=== PATIENT | female | born 1935 | race African-American/Black ===

== ENCOUNTER 2019-04-25 15:43 | Inpatient (IN) | payer MEDICARE, OTHER ==
[2019-04-25 16:18] LABS: #Basophils 0.1 thou/uL (0.0-0.2); #Eosinphils 0.1 thou/uL (0.0-0.7); #Lymphocytes 2.3 thou/uL (1.20-3.40); #Monocytes 0.5 thou/uL (0.11-0.59); #Neutrophils 3.8 thou/uL (1.40-6.50); %Basophils 1.2 % (0.0-1.0); %Eosinophils 1.9 % (0.0-10.0); %Lymphocytes 33.6 % (21.0-51.0); %Monocytes 7.7 % (0.0-10.0); %Neutrophils 55.6 % (42.0-75.0); Hemoglobin 12.2 g/dL (12.0-16.0); Mean Corpuscular HGB CONC 32.6 g/dL (32.0-36.0); Mean Corpuscular Volume 92.1 fL (78.0-98.0); Mean Platelet Volume 10.3 fL (7.4-10.4); Platelet Count 153 thou/uL (130-400); RBC Distribution Width 12.2 % (11.5-14.5); Red Blood Cell (RBC) Count 4.05 mill/uL (4.20-5.40); White Blood Cell (WBC) Count 6.8 thou/uL (4.8-10.8)
--- NOTE | 2019-04-25 16:25 | RAD ---
EXAM: Single view of the chest HISTORY: Syncope COMPARISON: None FINDINGS: Single view of the chest shows a normal sized cardiomediastinal silhouette. There is no feliberto dence of consolidation, mass, or pleural effusion. Degenerative changes are seen in the spine. IMPRESSION: No evidence of acute cardiopulmonary disease
[2019-04-25] MEDS ORDERED: Ondansetron PF 4 MG/2 ML Vial ONE (16:33)
[2019-04-25 16:37] LABS: ALT (SGPT) 13 U/L (8-55); AST (SGOT) 16 U/L (5-34); Albumin 4.2 g/dL (3.4-4.8); Alkaline Phosphatase 73 U/L (40-150); Anion Gap 12 mmol/L (10-20); BUN (Urea Nitrogen) 29 mg/dL (9.8-20.1); Bilirubin, Total 0.4 mg/dL (0.2-1.2); CK (CPK) 41 U/L (29-168); Calc. Creatinine Clearance 0 mL/min (70-130); Calcium 10.2 mg/dL (7.8-10.44); Carbon Dioxide 23 mmol/L (23-31); Chloride 108 mmol/L (98-107); Estimated GFR-MDRD 49; Globulin 2.9 g/dL (2.4-3.5); Glucose 138 mg/dL (83-110); Potassium 3.6 mmol/L (3.5-5.1); Protein, Total 7.1 g/dL (6.0-8.3); Sodium 139 mmol/L (136-145)
[2019-04-25] MEDS ORDERED: Aspirin Chewable 81 MG TAB ONE (17:20)
[2019-04-25 18:54] LABS: Bilirubin Negative (Negative); Blood, Urine Negative (Negative); Clarity Clear (Clear); Glucose, Urine (Dipstick) Negative (Negative); Leukocyte Moderate (Negative); Nitrite Negative (Negative); Protein, Urine (Dipstick) Negative (Neg-Trace); Urobilinogen 0.2 mg/dL (0.2-1.0)
[2019-04-25 19:03] LABS: Bacteria/HPF None Seen HPF (None Seen); Hyaline Casts/LPF NONE SEEN LPF (0-3 Hyaline); RBC/HPF None Seen HPF (0-3); Squamous Epithelial 0-3 HPF (0-3)
[2019-04-25] MEDS ORDERED: Ondansetron PF 4 MG/2 ML Vial IVP PRN (20:11)
[2019-04-25] MEDS ORDERED: Senokot S 8.6-50 MG TAB PO PRN (20:11)
[2019-04-25 20:22] LABS: Troponin I 0.025 ng/mL (< 0.028)
--- NOTE | 2019-04-25 20:55 | CT ---
CT head noncontrast HISTORY: Syncope. FINDINGS: There is no evidence of acute intracranial hemorrhage or infarct. Mild diffuse cortical atr ophy is apparent. There is no mass effect or shift of midline structures. Visualized paranasal sinuses remain well aerated. IMPRESSION: No acute intracranial abnormalities are demonstrated
[2019-04-25] MEDS: Sodium Chloride 0.9% 1,000 ML IV SCH (21:29)
[2019-04-25] MEDS ORDERED: Pilocarpine 1% Ophth Drops 15 ML BOT EA EYE PRN (21:52)
--- NOTE | 2019-04-25 22:58 | HP ---
This is ARIES Guajardo dictating a report for Lyssa Rose MD. CHIEF COMPLAINT: Syncope. HISTORY OF PRESENT ILLNESS: Ms. Honeycutt is a pleasant 84-year-old woman, who was witnessed to have a syncopal episode by her . He states he was sitting near her in the garage when he noted she slumped into the chair and her head fell backward. He initially assumed she had fallen asleep, however, he had significant difficulty waking her. Eventually, she began to attempt to speak and sounded groggy with difficulty opening her eyes. He states this lasted anywhere between 5 and 10 minutes before she was fully alert. The patient complained of pain across her upper back from the left to right shoulder. It is unclear how long this pain lasted and she describes it aching pain which was 8/10 in severity. By the time the EMS came, she was no longer experiencing pain in her back, but had pain in her fingers on both hands. She denies any weakness or numbness in any extremity. She did not experience any associated slurred speech, vision changes, facial weakness or drooping nor any other sensory changes. The patient states she has been in her usual state of health in recent days and has not had any complaints. She denies experiencing any chest pain or abdominal pain. No nausea or vomiting. No headaches or dizziness. Has not had any recent fevers, chills, or sweats. No changes with her bowels and denies any urinary symptoms. Did not experience any weakness, numbness, or pain in her legs. Denies any recent trauma. No discomfort in her neck or back. All other review of systems negative. PAST MEDICAL HISTORY: 1. Type 2 diabetes mellitus. 2. Hyperlipidemia. 3. Hypertension. 4. Glaucoma. PAST SURGICAL HISTORY: Reports having eye surgery. SOCIAL HISTORY: Denies any history of alcohol use, drug use, or tobacco use. ALLERGIES: NO KNOWN DRUG ALLERGIES. CURRENT MEDICATIONS: 1. Alphagan. 2. Latanoprost. 3. Pilocarpine. 4. Metformin. 5. Simvastatin. 6. Aspirin. 7. Losartan/hydrochlorothiazide. PHYSICAL EXAMINATION: GENERAL: The patient appears thin, well developed, and in no acute distress. VITAL SIGNS: Temperature 97.5, pulse 60, respirations 18, blood pressure 174/77, and O2 saturation 100% on room air. HEENT: Normocephalic and atraumatic. Pupils are equal, round, and reactive to light. Extraocular movements intact. No nystagmus noted. Oropharynx is clear. NECK: Supple without lymphadenopathy. LUNGS: Clear to auscultation bilaterally without any wheezes, rales, or rhonchi. CARDIAC: Regular rate and rhythm. ABDOMEN: Soft, nontender, and nondistended. Normoactive bowel sounds present. No guarding or rigidity. No renal angle tenderness. EXTREMITIES: Without lower leg swelling or edema. NEUROLOGIC: Alert and oriented x3. Facial movements, normal. Speech, also normal. Facial sensation intact. No tongue deviation. Power 5/5 in all extremities with no altered sensation. Reflexes intact. Gait normal. SKIN: Without rash or jaundice. LABORATORY DATA: White blood count , hemoglobin 12.2, hematocrit 37.3, and platelets 153. Sodium 139, potassium 3.6, anion gap 12, BUN 29, creatinine 1.06, GFR 49, glucose 138, calcium 10.2, total bilirubin 0.4, AST 16, ALT 13, and alkaline phosphatase 73. CK 41; troponin I 0.025, less than 0.010; and BNP 51.8. Albumin 4.2. Urinalysis notable for leukocyte esterase, and 4 to 6 white blood cells. No bacteria or nitrites seen. IMAGING DATA: Chest x-ray, April 25, 2019. No evidence of acute cardiopulmonary process. Normal size cardiomediastinal silhouette. IMPRESSION AND PLAN: Ms. Honeycutt is an 84-year-old woman, who is being admitted for management of the following. 1. Syncope. Per her , she suddenly slumped in the chair and lost consciousness lasting 5 to 10 minutes before she was back to her baseline and alert/oriented. CT of the brain has been requested. Patient without any new neuro deficits at present and back to her baseline, except for pain in the bilateral hands. Day Team to decide further investigations such as carotid ultrasound if indicated. I have requested an echocardiogram. 2. Acute coronary syndrome rule out. Patient with pain across her upper back from left shoulder to right shoulder. LFTs unremarkable. I have added on lipase. Patient without any abdominal pain or other associated symptoms. Currently experiencing pain in the fingers of both hands, which is new. Currently trending troponins. Awaiting third troponin. We will continue to monitor and we will give acetaminophen for pain for now. 3. Hypertension. We will resume home medications once verified. Monitor her blood pressure. 4. Hyperlipidemia. We will resume home medications once verified. 5. Gastrointestinal prophylaxis. 6. Deep venous thrombosis prophylaxis with mechanical SCDs. 7. Full code status. Her surrogate decision maker is her , Mr. Oc Honeycutt. Patient's case to be discussed with Dr. Rose for further recommendations. Job ID: [id number]
[2019-04-25 23:38] LABS: Troponin I Less than 0.010 ng/mL (< 0.028)
[2019-04-26 05:33] LABS: #Basophils 0.1 thou/uL (0.0-0.2); #Eosinphils 0.1 thou/uL (0.0-0.7); #Lymphocytes 2.4 thou/uL (1.20-3.40); #Monocytes 0.5 thou/uL (0.11-0.59); #Neutrophils 3.5 thou/uL (1.40-6.50); %Basophils 0.8 % (0.0-1.0); %Eosinophils 1.6 % (0.0-10.0); %Neutrophils 53.7 % (42.0-75.0); Hemoglobin 11.3 g/dL (12.0-16.0); Mean Corpuscular HGB CONC 32.5 g/dL (32.0-36.0); Mean Corpuscular Hemoglobin 30.1 pg (27.0-31.0); Mean Corpuscular Volume 92.7 fL (78.0-98.0); Mean Platelet Volume 10.8 fL (7.4-10.4); Platelet Count 130 thou/uL (130-400); RBC Distribution Width 12.2 % (11.5-14.5); Red Blood Cell (RBC) Count 3.74 mill/uL (4.20-5.40); White Blood Cell (WBC) Count 6.6 thou/uL (4.8-10.8)
[2019-04-26 05:51] LABS: Anion Gap 10 mmol/L (10-20); BUN (Urea Nitrogen) 24 mg/dL (9.8-20.1); Calc. Creatinine Clearance 37 mL/min (70-130); Calcium 9.2 mg/dL (7.8-10.44); Carbon Dioxide 22 mmol/L (23-31); Chloride 111 mmol/L (98-107); Estimated GFR-MDRD 66; Glucose 77 mg/dL (83-110); Potassium 3.4 mmol/L (3.5-5.1); Sodium 140 mmol/L (136-145)
[2019-04-26] MEDS: Famotidine/PF 20 mg/2ml Vial SLOW IVP SCH (09:16)
[2019-04-26] MEDS: Aspirin 81 mg Enteric Coated Tablet PO SCH (10:10)
[2019-04-26] MEDS: Losartan/Hydrochlorothiazide 100 mg/25 mg Tablet PO SCH (10:10)
[2019-04-26] MEDS: DorzolamidE/Timolol 2%/0.5% Ophth Soln 10 ml Bottle EA EYE SCH ×2 (10:15→22:31)
[2019-04-26] MEDS: Brimonidine Tartrate 0.2% Ophth Soln 5 ml Bottle EA EYE SCH ×3 (10:15→22:31)
[2019-04-26] MEDS: prednisoLONE 1% Ophth Susp 5 ml Bottle EA EYE SCH ×3 (10:15→22:31)
[2019-04-26] MEDS ORDERED: Communication Order-Pharmacy FS SCH (11:00)
--- NOTE | 2019-04-26 12:00 | CON ---
DATE OF CONSULTATION: 04/26/2019 REASON FOR CONSULTATION: Syncope with left bundle-branch block. HISTORY OF PRESENT ILLNESS: Ms. Sherry Honeycutt is a delightful 84-year-old patient. The patient was in her usual state of relatively good health yesterday when she had a loss of consciousness episode. The patient had been inside of her house. Her had been outside working in the yard. Her came in to the garage and he said it was nice breeze and it was relatively cool. She came out and sat in the chair. They had been sitting in the chair for some time and she suddenly became unresponsive. The patient's said she was kind of was nodding forward, but he cannot revive her. This lasted for several minutes. Ultimately, she regained consciousness. The patient did have some pain in the upper back and left arm and the right arm and posterior portions of her arms with this episode. She has never had an episode like that before. The patient was found to have a left bundle-branch block here. MEDICATIONS: At home include; 1. Aspirin. 2. Simvastatin. 3. Losartan/hydrochlorothiazide. 4. Metformin. 5. Timolol eye drops. 6. Prednisolone eye drop. 7. Brimonidine eye drop. ALLERGIES: NONE KNOWN. SOCIAL HISTORY: No alcohol or tobacco. She has a very supportive family. REVIEW OF SYSTEMS: CONSTITUTIONAL: No significant weight gain or loss. VISION: No changes. HEARING: No changes. PULMONARY: No cough or wheezing. GASTROINTESTINAL: No nausea, vomiting, or diarrhea. SKIN: No rashes. NEUROLOGIC: No unilateral weakness or numbness. PSYCHIATRIC: No unusual depression or anxiety. PAST HISTORY: 1. History of hypertension. 2. Diabetes. 3. Hypercholesterolemia. PRIMARY CARE DOCTOR: Dr. Dexter. PHYSICAL EXAMINATION: GENERAL: On examination, this is a delightful 84-year-old female. VITAL SIGNS: Blood pressure 170/70, pulse 66 and regular. HEENT: Eyes; sclerae are nonicteric. Mouth; mucous membranes are moist. NECK: Supple. No lymphadenopathy. LUNGS: Clear. No wheezing, rales, or rhonchi. CARDIAC: Normal S1. Normal S2. There is no murmur, rub, or gallop. ABDOMEN: Soft and nontender. No hepatosplenomegaly. EXTREMITIES: Warm and dry. No clubbing or cyanosis. There is no edema. PSYCHIATRIC: Mood and affect normal. NEUROLOGIC: Grossly normal. Normal femoral pulses. Normal popliteal pulses. Normal dorsalis pedis pulses. PERTINENT LABORATORY DATA: Hemoglobin is 11.3. Potassium is 3.4, glucose 77. Troponin levels were negative, the peak being 0.025. EKG shows left bundle-branch block. QRS duration 0.15 with a first-degree AV block. Echocardiogram shows ejection fraction to be 35% to 40% with paradoxical septal motion. No significant valvular heart disease. ASSESSMENT: 1. Syncopal episode, it sounds very suspicious for a bradyarrhythmia. 2. Left bundle-branch block with first-degree atrioventricular block. 3. Chest pain associated with this episode. 4. Diabetes. 5. Hypertension. 6. History of hypercholesterolemia. PLAN: 1. Recommend proceeding to cardiac catheterization to define the coronary anatomy. Discussed risk of stroke, heart attack, iodine allergy, interference of blood supply to leg or kidney. Discussed that if there is a critical lesion in a vessel, a stent would be appropriate. The risk of stenting including myocardial infarction, stent thrombosis, and stent restenosis were all discussed. 2. Will likely need electrophysiologic evaluation. If she does not have critical lesions in the coronary arteries, may need biventricular pacing. The first step today will be the heart catheterization. Job ID: [id number]
[2019-04-26] MEDS ORDERED: Lidocaine 1% (PF) 30 ML VIAL ONE (12:33)
--- NOTE | 2019-04-26 12:51 | ULT ---
BILATERAL CAROTID DUPLEX ULTRASOUND: HISTORY: Syncope TECHNIQUE: Grayscale, color-flow and spectral Doppler ultrasound imaging of the extracranial carotid artery syst ems and vertebral arteries was performed bilaterally. FINDINGS: No large amount of echogenic plaque is seen involving the common carotid or internal carotid arteries . The peak systolic velocity in the right ICA measures 74 cm/s. The peak systolic velocity in the righ t CCA measures 73 cm/s. The peak systolic velocity in the left ICA measures 79 cm/s. The peak systolic velocity in the lef t CCA measures 93 cm/s. Vertebral flow: Antegrade bilaterally . IMPRESSION: No hemodynamically significant stenosis of either internal carotid artery.
[2019-04-26] MEDS ORDERED: Iopamidol 370 76% 100 ML VIAL ONE (12:56)
[2019-04-26] MEDS ORDERED: Midazolam HCl 2 mg/2 ml Vial ONE (13:08)
--- NOTE | 2019-04-26 13:39 | PDOC.PN ---
- Subjective Encounter Start Date: 04/26/19 Encounter Start Time: 13:38 Patient seen and examined with granddaughter at bedside. She reports feeling better and denies any more syncopal like episodes. Echo shows EF 35-40% with signs of LBBB, Cardiology recommending heart cath. - Objective Resuscitation Status - Order Detail: 04/25/19 20:11 Resuscitation Status Routine Co-Sign Provider: Resuscitation Status: FULL: Full Resuscitation MAR Reviewed: Yes Vital Signs & Weight: Vital Signs (12 hours) Temp Pulse Resp BP BP BP BP 04/26/19 11:58 98.3 F 63 16 150/69 H 04/26/19 08:26 98.3 F 66 20 169/72 H 171/70 H 164/72 H 04/26/19 04:50 66 18 164/70 H Pulse Ox 04/26/19 11:58 99 04/26/19 08:26 100 04/26/19 04:50 99 Weight Weight 118 lb 8 oz I&O: 04/25/19 04/26/19 04/27/19 06:59 06:59 06:59 Output Total 800 Balance -800 Result Diagrams: 04/26/19 04:33 04/26/19 04:33 Radiology Reviewed by me: Yes Phys Exam - Physical Examination Constitutional: NAD HEENT: moist MMs, oral pharynx no lesions Neck: supple, full ROM Respiratory: no wheezing, clear to auscultation bilateral Cardiovascular: RRR, no significant murmur Gastrointestinal: soft, positive bowel sounds Musculoskeletal: no edema, pulses present Neurological: non-focal, moves all 4 limbs Psychiatric: normal affect, A&O x 3 Skin: normal turgor, cap refill <2 seconds Dx/Plan (1) Syncope Code(s): R55 - SYNCOPE AND COLLAPSE Status: Acute (2) LBBB (left bundle branch block) Code(s): I44.7 - LEFT BUNDLE-BRANCH BLOCK, UNSPECIFIED Status: Acute (3) Systolic dysfunction, left ventricle Code(s): I51.9 - HEART DISEASE, UNSPECIFIED Status: Acute (4) HTN (hypertension) Code(s): I10 - ESSENTIAL (PRIMARY) HYPERTENSION Status: Acute (5) HLD (hyperlipidemia) Code(s): E78.5 - HYPERLIPIDEMIA, UNSPECIFIED Status: Acute (6) Diabetes mellitus Code(s): E11.9 - TYPE 2 DIABETES MELLITUS WITHOUT COMPLICATIONS Status: Acute - Plan cont current plan of care, plan discussed w/ family * Echo results discussed with patient and family * Dr Quinteros consulted and plans for heart cath * Continue current medical management * Await heart cath results for further disposition and care plan * Patient may have suffered bradyarrythmia per Dr Quinteros * Transition to inpatient as she may require more care during her hospital stay
[2019-04-26] MEDS ORDERED: Sodium Chloride 0.9% 200 ML IV PRN (13:55)
[2019-04-26] MEDS ORDERED: Nitroglycerin 0.4 MG TAB (25 Tab Bottle) SL PRN (13:55)
[2019-04-26] MEDS ORDERED: Acetaminophen/Codeine 30-300mg Tablet PO PRN (13:55)
[2019-04-26] MEDS ORDERED: Sodium Chloride 0.9% 1,000 ML IV SCH (14:00)
[2019-04-26] MEDS: Sodium Chloride 0.9% 1,000 ML IV SCH (14:22)
[2019-04-26] MEDS ORDERED: Acetaminophen 325 MG TAB PO PRN (22:00)
[2019-04-26] MEDS: Simvastatin 20 MG TAB PO SCH (22:24)
--- NOTE | 2019-04-26 22:27 | CON ---
DATE OF CONSULTATION: REASON FOR CONSULTATION: Syncope, left bundle-branch block. HISTORY OF PRESENT ILLNESS: Ms. Honeycutt is a very pleasant 84-year-old woman, who was in her usual state of health until yesterday when she had a loss of consciousness episode. She was at home talking in a seated position and began to feel dizzy, and she reports she was aware of what was going on around her, but could not move or respond. Family that was near her reports that she did completely pass out and go unresponsive. This lasted for several minutes before she regained consciousness. She had some associated arm pain in addition to back pain. This is the first time anything like this has ever happened before. They brought her to the hospital for further evaluation. She was found to have a left bundle-branch block in addition to a first-degree AV block on 12-lead EKG. She was taken to the pharmaceutical laboratory technician by Dr. Quinteros earlier today and was found to have minimal coronary artery disease and a moderately reduced ejection fraction of 35% to 40% by echo. EP consultation was requested regarding her recent syncope and collapse and further evaluation. Currently, Ms. Honeycutt is resting comfortably in bed after her left heart catheterization. She is on bedrest currently. She denies any heart racing, palpitations, chest pain, pressure, repeat syncopal episodes since the one mentioned above. REVIEW OF SYSTEMS: A 12-point review of systems is negative except that listed above in HPI. PAST MEDICAL HISTORY: 1. Type-2 diabetes mellitus. 2. Hypertension. 3. Hyperlipidemia. 4. Glaucoma. SOCIAL HISTORY: Denies alcohol, tobacco, or illicit drug use. Largely sedentary lifestyle, but very independent at home. FAMILY HISTORY: Noncontributory. ALLERGIES: NO KNOWN DRUG ALLERGIES. HOME MEDICATIONS: Include; 1. Cosopt ophthalmic solution to each eye b.i.d. 2. Alphagan to each eye t.i.d. 3. Prednisolone acetate eye drops to each eye t.i.d. 4. Pilocarpine 1% ophthalmic solution to each eye as needed. 5. Aspirin 81 mg daily. 6. Alendronate sodium weekly. 7. Zocor 20 mg at bedtime. 8. Losartan-hydrochlorothiazide 100-25 mg daily. 9. Metformin 500 mg at bedtime. OBJECTIVE: VITAL SIGNS: Temperature 98.3 degrees Fahrenheit, pulse 63, blood pressure 150/69, respirations 16, oxygen is 99% on room air. Orthostatic blood pressures were collected and were unremarkable. GENERAL: The patient is alert and oriented. Speech is clear. Affect is appropriate. She is in no apparent distress, resting comfortably in bed, lying flat on her bed rest. HEENT: She is normocephalic, atraumatic. Sclerae are anicteric. EOMs are intact. Oral mucosa is moist and pink. She has adequate dentition. NECK: Supple without jugular venous distention. HEART: Rate is with crisp S1 and S2. LUNGS: Clear to auscultation bilaterally. Respirations are even and unlabored with good bilateral excursion. ABDOMEN: Soft and nontender without palpable masses. EXTREMITIES: Warm and dry to touch without clubbing, cyanosis, or edema. Gait is not assessed as she is on bed rest. NEUROLOGIC: Nonfocal. LABORATORY AND DIAGNOSTIC DATA: Hematology was reviewed, is unremarkable other than some mild anemia with hemoglobin of 11.3. Chemistry, serial troponins were negative. TSH is 1.9, potassium 3.4, creatinine 0.97. Liver enzymes were within normal limits. BNP was 51. Echocardiogram on 04/26 reveals an ejection fraction of 35% to 40% with paradoxical septal motion compatible with left bundle-branch block and LV dyssynchrony. Left heart catheterization on 04/26/2019; minimal CAD. No PCI indicated. Moderately reduced ejection fraction seen as mentioned above. Telemetry and EKG were reviewed and showed sinus rhythm with both first-degree AV block and a left bundle-branch block. IN interval is 248 milliseconds. QRS is widened at 152 milliseconds and left bundle-branch morphology. IMPRESSION: 1. Syncope and collapse. 2. Left bundle-branch block. 3. First-degree AV block. 4. Chest pain with stable coronary arteries by left heart catheterization. 5. Moderately reduced LV ejection fraction of 35% to 40% by echocardiogram and left ventriculogram during heart catheterization. 6. Type-2 diabetes. PLAN AND RECOMMENDATIONS: Ms. Honeycutt is a very pleasant 84-year-old woman with recent syncope and collapse. She was found to have a first-degree AV block and a left bundle-branch block in addition to moderately reduced ejection fraction. It is concerning that advanced conduction disease could be the culprit behind her syncope and collapse or possibly even ventricular arrhythmias with her borderline ejection fraction. At this point, my recommendation is for the patient and her family to consider an electrophysiology study and biventricular pacemaker versus ICD, which could be done this coming Wednesday. A biventricular device would correct her LV dyssynchrony and could possibly assist in recovering her moderately reduced ejection fraction that would certainly prevent any recurrent syncopal episodes if advanced conduction disease is the cause. We discussed possible ICD as well. At this point, her ejection fraction is only moderately reduced, but with her recent syncope, an electrophysiology study can be performed to evaluate for her inducibility of ventricular arrhythmias. If she is inducible, the device could be ICD. We discussed the risks, benefits, and alternatives at length with the patient and her family members who are bedside. At this point, they will consider their options, but the patient is leaning toward biventricular pacemaker only. Thank you for allowing me to participate in the care of this patient. Job ID: [id number]
[2019-04-27] MEDS: Famotidine/PF 20 mg/2ml Vial SLOW IVP SCH (08:00)
[2019-04-27] MEDS: Aspirin 81 mg Enteric Coated Tablet PO SCH (08:00)
[2019-04-27] MEDS: Losartan/Hydrochlorothiazide 100 mg/25 mg Tablet PO SCH (08:01)
[2019-04-27] MEDS: DorzolamidE/Timolol 2%/0.5% Ophth Soln 10 ml Bottle EA EYE SCH ×2 (09:29→21:27)
[2019-04-27] MEDS: Brimonidine Tartrate 0.2% Ophth Soln 5 ml Bottle EA EYE SCH ×3 (09:29→21:27)
[2019-04-27] MEDS: prednisoLONE 1% Ophth Susp 5 ml Bottle EA EYE SCH ×3 (09:29→21:27)
[2019-04-27 09:33] LABS: Anion Gap 12 mmol/L (10-20); BUN (Urea Nitrogen) 15 mg/dL (9.8-20.1); Calc. Creatinine Clearance 35 mL/min (70-130); Calcium 8.9 mg/dL (7.8-10.44); Carbon Dioxide 23 mmol/L (23-31); Chloride 108 mmol/L (98-107); Estimated GFR-MDRD 63; Glucose 113 mg/dL (83-110); Potassium 3.6 mmol/L (3.5-5.1); Sodium 139 mmol/L (136-145)
--- NOTE | 2019-04-27 09:39 | PRG ---
DATE OF SERVICE: 04/27/2019 SUBJECTIVE: Ms. Honeycutt is doing well today. Feels well. No complaints. OBJECTIVE: VITAL SIGNS: Blood pressure 149/67; pulse 58, it is sinus on the monitor. LUNGS: Clear. CARDIAC: Normal S1. Normal S2. ASSESSMENT: 1. Left bundle-branch block. 2. Syncopal episode. 3. Mild to moderately depressed left ventricular function. PLAN: For EP study tomorrow, most likely will need pacemaker biventricular followed by beta-oswaldo. The family is considering whether they wished to be considered for a defibrillator as well. Job ID: [id number]
--- NOTE | 2019-04-27 17:30 | PDOC.PN ---
- Subjective Encounter Start Date: 04/27/19 Encounter Start Time: 14:00 Ms. Honeycutt was seen today in follow-up of syncope. She does not have any complaints this afternoon. She denies feeling dizzy or lightheaded. she denies any chest pain. - Objective Resuscitation Status - Order Detail: 04/25/19 20:11 Resuscitation Status Routine Co-Sign Provider: Resuscitation Status: FULL: Full Resuscitation MAR Reviewed: Yes Vital Signs & Weight: Vital Signs (12 hours) Temp Pulse Pulse Pulse Resp BP BP 04/27/19 15:48 98.4 F 61 16 04/27/19 11:27 98.0 F 57 L 17 04/27/19 10:58 56 L 63 161/70 H 194/79 H 04/27/19 07:57 98.5 F 58 L 16 BP BP BP BP Pulse Ox Pulse Ox Pulse Ox 04/27/19 15:48 158/67 H 99 04/27/19 11:27 174/74 H 157/71 H 176/74 H 98 04/27/19 10:58 99 99 04/27/19 07:57 149/67 H 98 Weight Weight 118 lb 8 oz I&O: 04/26/19 04/27/19 04/28/19 06:59 06:59 06:59 Intake Total 420 Output Total 800 Balance -800 420 Result Diagrams: 04/26/19 04:33 04/27/19 09:01 Phys Exam - Physical Examination HEENT: PERRLA Respiratory: no wheezing, no rales, no rhonchi, clear to auscultation bilateral Cardiovascular: RRR, no significant murmur, no rub Gastrointestinal: soft, non-tender, no distention, positive bowel sounds Musculoskeletal: no edema, pulses present Dx/Plan (1) Syncope Code(s): R55 - SYNCOPE AND COLLAPSE Status: Acute (2) LBBB (left bundle branch block) Code(s): I44.7 - LEFT BUNDLE-BRANCH BLOCK, UNSPECIFIED Status: Acute (3) Diabetes mellitus Code(s): E11.9 - TYPE 2 DIABETES MELLITUS WITHOUT COMPLICATIONS Status: Chronic (4) HTN (hypertension) Code(s): I10 - ESSENTIAL (PRIMARY) HYPERTENSION Status: Chronic - Plan * Syncope- likely from a malignant arrhythmia- plan is for Bi-ventricular pacemaker, with (probable) defibrillator placement. * HTN- blood pressure is stable * DM- Metformin is on hold, and will continue SSI * Systolic Heart failure- she is already on an ARB, and plan is to add a beta- oswaldo after her pacemaker is placed
[2019-04-27] MEDS ORDERED: Dextrose 5% in Water 1,000 ML IV PRN (17:36)
[2019-04-27] MEDS ORDERED: Dextrose 50% Abboject 50 ML SYRINGE SLOW IVP PRN (17:36)
[2019-04-27] MEDS ORDERED: HumaLOG 300 UNITS/3 ML VIAL SC PRN ×2 (17:36)
[2019-04-27] MEDS: Simvastatin 20 MG TAB PO SCH (21:12)
[2019-04-28] MEDS ORDERED: CEFAZOLIN 2 GM in Premix Bag 1 BAG IVPB SCH (04:00)
[2019-04-28 06:06] LABS: #Basophils 0.1 thou/uL (0.0-0.2); #Eosinphils 0.1 thou/uL (0.0-0.7); #Lymphocytes 2.4 thou/uL (1.20-3.40); #Monocytes 0.6 thou/uL (0.11-0.59); #Neutrophils 3.4 thou/uL (1.40-6.50); %Basophils 1.4 % (0.0-1.0); %Eosinophils 1.8 % (0.0-10.0); %Lymphocytes 36.9 % (21.0-51.0); %Monocytes 8.4 % (0.0-10.0); %Neutrophils 51.6 % (42.0-75.0); Hemoglobin 12.7 g/dL (12.0-16.0); Mean Corpuscular HGB CONC 32.2 g/dL (32.0-36.0); Mean Corpuscular Hemoglobin 29.5 pg (27.0-31.0); Mean Corpuscular Volume 91.6 fL (78.0-98.0); Mean Platelet Volume 10.4 fL (7.4-10.4); Platelet Count 143 thou/uL (130-400); White Blood Cell (WBC) Count 6.6 thou/uL (4.8-10.8)
[2019-04-28 06:29] LABS: Anion Gap 12 mmol/L (10-20); BUN (Urea Nitrogen) 18 mg/dL (9.8-20.1); Calc. Creatinine Clearance 33 mL/min (70-130); Calcium 9.5 mg/dL (7.8-10.44); Carbon Dioxide 25 mmol/L (23-31); Chloride 106 mmol/L (98-107); Estimated GFR-MDRD 58; Glucose 109 mg/dL (83-110); Potassium 3.6 mmol/L (3.5-5.1); Sodium 139 mmol/L (136-145)
[2019-04-28] MEDS: Famotidine/PF 20 mg/2ml Vial SLOW IVP SCH (09:38)
[2019-04-28] MEDS: Aspirin 81 mg Enteric Coated Tablet PO SCH (09:38)
[2019-04-28] MEDS: Losartan/Hydrochlorothiazide 100 mg/25 mg Tablet PO SCH (09:38)
[2019-04-28] MEDS: Brimonidine Tartrate 0.2% Ophth Soln 5 ml Bottle EA EYE SCH ×3 (09:57→21:14)
[2019-04-28] MEDS: prednisoLONE 1% Ophth Susp 5 ml Bottle EA EYE SCH ×3 (09:58→21:15)
[2019-04-28] MEDS: DorzolamidE/Timolol 2%/0.5% Ophth Soln 10 ml Bottle EA EYE SCH ×2 (09:58→21:15)
[2019-04-28] MEDS ORDERED: Lidocaine 1% (PF) 30 ML VIAL ONE ×2 (10:37→12:02)
[2019-04-28] MEDS ORDERED: Iopamidol 370 76% 50 ML VIAL FS ONE (11:12)
[2019-04-28] MEDS ORDERED: Fentanyl 100 MCG/2 ML VIAL ONE (11:36)
[2019-04-28] MEDS ORDERED: Ketamine 50 MG/ML (10ML VIAL) ONE (11:36)
--- NOTE | 2019-04-28 11:51 | PDOC.PN ---
- Subjective Encounter Start Date: 04/28/19 Encounter Start Time: 10:30 Ms. Honeycutt was seen today in follow-up of syncope. She does not have any complaints this morning. She denies chest pain or shortness of breath. - Objective Resuscitation Status - Order Detail: 04/25/19 20:11 Resuscitation Status Routine Co-Sign Provider: Resuscitation Status: FULL: Full Resuscitation MAR Reviewed: Yes Vital Signs & Weight: Vital Signs (12 hours) Temp Pulse Resp BP Pulse Ox 04/28/19 07:00 97.7 F 55 L 14 135/62 97 04/28/19 04:00 98.5 F 57 L 12 140/63 96 04/28/19 00:00 66 120/58 L Weight Weight 118 lb 8 oz I&O: 04/27/19 04/28/19 04/29/19 06:59 06:59 06:59 Intake Total 420 250 Balance 420 250 Result Diagrams: 04/28/19 05:58 04/28/19 05:58 Additional Labs: Accuchecks 04/28/19 04/27/19 04/27/19 05:29 20:32 18:37 POC Glucose 108 89 113 H Phys Exam - Physical Examination HEENT: PERRLA Respiratory: no wheezing, no rales, no rhonchi, clear to auscultation bilateral Cardiovascular: RRR, no significant murmur, no rub Gastrointestinal: soft, non-tender, no distention, positive bowel sounds Musculoskeletal: no edema Dx/Plan (1) Syncope Code(s): R55 - SYNCOPE AND COLLAPSE Status: Acute (2) LBBB (left bundle branch block) Code(s): I44.7 - LEFT BUNDLE-BRANCH BLOCK, UNSPECIFIED Status: Acute (3) Diabetes mellitus Code(s): E11.9 - TYPE 2 DIABETES MELLITUS WITHOUT COMPLICATIONS Status: Chronic (4) HTN (hypertension) Code(s): I10 - ESSENTIAL (PRIMARY) HYPERTENSION Status: Chronic - Plan * Syncope- she will have BiV pacer placed with defibrillator * Systolic heart failure- compensated * HTN- blood pressure is stable * DM- blood glucose is stable .
[2019-04-28] MEDS ORDERED: Isoproterenol 0.2 MG/1 ML AMP ONE (12:41)
[2019-04-28] MEDS ORDERED: Ondansetron HCl/PF 4 MG/2 ML Vial IVP PRN (14:33)
[2019-04-28] MEDS ORDERED: Promethazine HCl 25 MG/ML VIAL SLOW IVP PRN (14:33)
[2019-04-28] MEDS ORDERED: HYDROmorphone 2 MG/ML VIAL SLOW IVP PRN (14:33)
[2019-04-28] MEDS ORDERED: Promethazine HCl 25 MG/ML VIAL IM PRN (14:33)
[2019-04-28] MEDS ORDERED: Morphine Sulfate 2 MG/ML SYRINGE SLOW IVP PRN (14:33)
--- NOTE | 2019-04-28 15:14 | RAD ---
CHEST 1 VIEW: Date: 04/28/19 COMPARISON: 04/25/19. HISTORY: Pacemaker placement. FINDINGS: Interval placement of left-sided transvenous pacemaker with lead position in the right atrium, right ventricle, and coronary sinus. Stable cardiac silhouette and stable opacification of lung parenchyma due to chronic changes. No pneumothorax. IMPRESSION: Interval placement of left-sided transvenous pacemaker. No pneumothorax. POS: [facility]
[2019-04-28] MEDS ORDERED: Acetaminophen/Codeine 30-300mg Tablet PO PRN (15:30)
[2019-04-28] MEDS: Cephalexin 250 MG CAP PO SCH ×2 (15:44→21:02)
[2019-04-28] MEDS: Carvedilol 6.25 MG TAB PO SCH (16:53)
[2019-04-28] MEDS: Acetaminophen/Codeine 30-300mg Tablet PO PRN ×2 (17:51→22:41)
--- NOTE | 2019-04-28 20:45 | OP ---
DATE OF PROCEDURE: 04/28/2019 REFERRING PHYSICIAN: Dr. Natan Quinteros. PROCEDURE PERFORMED: Electrophysiology study. REASON FOR PROCEDURE: Ms. Honeycutt is an 84-year-old woman, who presented with sudden syncopal spell. She was also noted to have left bundle-branch block and reduced LVEF of 35% to 40% on echo with nonocclusive coronary artery disease only. She is here to evaluate her inducibility for ventricular tachycardia, which is one of the possible explanation for her syncopal spell in view of reduced LVEF, also to evaluate sinus and AV michael function. DESCRIPTION OF PROCEDURE: The patient received propofol by Anesthesia specialist. After adequate level of sedation achieved, the left femoral venous area was prepped and draped, and anesthetized using subcutaneous lidocaine and under ultrasound guidance, the left femoral vein was cannulated. A 6-Chinese short sheath was introduced. Through this, a quadripolar fixed curve catheter was advanced to the His bundle, right atrium, and right ventricle location. Pacing mapping and recording were performed at each location. Following findings were noted. Baseline rhythm was sinus rhythm with cycle length 110 msec, FL 120, QRS 127, QT 472, AH 56, HV 69 msec. Sinus node recovery time was 1171, corrected sinus node recovery time was msec. AV Wenckebach cycle length was 520 msec, retrograde Wenckebach cycle length was less than 500. AV michael ERP was measured at 600/260 msec. Dual AV node physiology was not seen. Burst atrial pacing did not induce sustained arrhythmias, only short nonsustained atrial flutter was seen. Following that, ventricular access to my testing was performed with [address] and up to 3 ventricular extrastimuli did decrement to the refractory period. The ventricular ERP was measured at 600/260/180/180 msec. This protocol was repeated with different ventricular sides from the apex and also at the base of the right ventricle and also on and off Isuprel. The protocol was repeated. No significant ventricular arrhythmia was seen with this induction protocol. CONCLUSION: 1. No inducible ventricular tachycardia. 2. Abnormal infra-Hisian conduction. 3. Normal AV michael function. 4. Nonsustained atrial arrhythmia inducible only. 5. Normal sinus michael function. PLAN: Proceed with Bi-V pacemaker implantation. Job ID: [id number] [facility]
[2019-04-28] MEDS: Simvastatin 20 MG TAB PO SCH (21:02)
[2019-04-29] MEDS: Acetaminophen/Codeine 30-300mg Tablet PO PRN (06:41)
[2019-04-29 08:04] VITALS: TEMP 97.2
--- NOTE | 2019-04-29 08:54 | PDOC.OP ---
Operative Note - Operative Note Operative Note: BIV PPM placed yesterday after EP study showed no inducibility. this am CXR negative for Pntx. PM interrogation reveal adequate function. Plan is to go home on a week of antibiotics. Wound check within 2 weeks.
[2019-04-29] MEDS: Aspirin 81 mg Enteric Coated Tablet PO SCH (09:52)
[2019-04-29] MEDS: Carvedilol 6.25 MG TAB PO SCH (09:52)
[2019-04-29] MEDS: Losartan/Hydrochlorothiazide 100 mg/25 mg Tablet PO SCH (09:52)
[2019-04-29] MEDS: Cephalexin 250 MG CAP PO SCH ×2 (09:52→16:12)
[2019-04-29] MEDS: Brimonidine Tartrate 0.2% Ophth Soln 5 ml Bottle EA EYE SCH (09:54)
[2019-04-29] MEDS: DorzolamidE/Timolol 2%/0.5% Ophth Soln 10 ml Bottle EA EYE SCH (09:55)
[2019-04-29] MEDS: prednisoLONE 1% Ophth Susp 5 ml Bottle EA EYE SCH (09:55)
[2019-04-29] MEDS: Famotidine/PF 20 mg/2ml Vial SLOW IVP SCH (09:55)
--- NOTE | 2019-04-29 12:27 | PDOC.PN ---
- Subjective Encounter Start Date: 04/29/19 Encounter Start Time: 12:25 Ms. Honeycutt was seen today in follow-up of syncope. She does not have any complaints. - Objective Resuscitation Status - Order Detail: 04/25/19 20:11 Resuscitation Status Routine Co-Sign Provider: Resuscitation Status: FULL: Full Resuscitation MAR Reviewed: Yes Vital Signs & Weight: Vital Signs (12 hours) Temp Pulse Resp BP Pulse Ox 04/29/19 08:00 97.2 F L 63 18 113/57 L 96 04/29/19 04:00 97.1 F L 80 18 112/57 L 99 Weight Weight 114 lb 3.2 oz I&O: 04/28/19 04/29/19 04/30/19 06:59 06:59 06:59 Intake Total 250 360 240 Output Total 950 Balance 250 -590 240 Result Diagrams: 04/28/19 05:58 04/28/19 05:58 Additional Labs: Accuchecks 04/29/19 04/29/19 04/28/19 11:07 05:27 20:21 POC Glucose 135 H 112 H 103 04/28/19 17:31 POC Glucose 84 Phys Exam - Physical Examination HEENT: PERRLA Respiratory: no wheezing, no rales, no rhonchi, clear to auscultation bilateral Cardiovascular: RRR, no significant murmur, no rub Gastrointestinal: soft, non-tender, no distention, positive bowel sounds Musculoskeletal: no edema, pulses present Dx/Plan (1) Syncope Code(s): R55 - SYNCOPE AND COLLAPSE Status: Acute (2) LBBB (left bundle branch block) Code(s): I44.7 - LEFT BUNDLE-BRANCH BLOCK, UNSPECIFIED Status: Acute (3) Diabetes mellitus Code(s): E11.9 - TYPE 2 DIABETES MELLITUS WITHOUT COMPLICATIONS Status: Chronic (4) HTN (hypertension) Code(s): I10 - ESSENTIAL (PRIMARY) HYPERTENSION Status: Chronic - Plan * Syncope- She had the BiV pacer placed. She did not require defibrillator placement * She is stable for discharge home..
[2019-04-29 13:22] VITALS: BP 129/51
--- NOTE | 2019-04-30 02:23 | DIS ---
DATE OF ADMISSION: 04/25/2019 DATE OF DISCHARGE: 04/29/2019 PRIMARY CARE PHYSICIAN: Dr. Dexter. DISCHARGE DISPOSITION: Home. PRIMARY DISCHARGE DIAGNOSES: 1. Syncope. 2. Acute systolic heart failure. 3. Hypertension. 4. Hyperlipidemia. 5. Left bundle branch block with 1st degree AV block. DISCHARGE MEDICATIONS: 1. Keflex 250 mg q.i.d. 2. Carvedilol 6.25 mg twice daily. 3. Tylenol No.3 q.4 hours p.r.n. 4. Zocor 20 mg at bedtime. 5. Metformin 500 mg at bedtime. 6. Losartan hydrochlorothiazide 100/25 mg one tablet daily. 7. Dorzolamide eye drops twice a day. 8. Alphagan eye drops three times a day. 9. Aspirin 81 mg daily. 10. Alendronate 70 mg every 7 days. PROCEDURES DONE DURING ADMISSION: The patient had a CT scan of the brain showing no intracranial abnormalities. The patient had bilateral carotid Dopplers, which were negative for any hemodynamically significant stenosis. The patient had an echocardiogram in which the ejection fraction was estimated at 35% to 40%. There was paradoxical septal motion compatible with a left bundle-branch block and the patient had a biventricular pacer placed. CODE STATUS: Full code. ALLERGIES: NO KNOWN DRUG ALLERGIES. HOSPITAL COURSE: Ms. Honeycutt is a pleasant 84-year-old female, who presented to the emergency room after having a syncopal episode which was witnessed by her . She had no known medical problems other than diabetes and hypertension prior to this, but no history of any coronary artery disease. She was evaluated with carotid Dopplers and an echo and was found to have a significantly low junction fraction, which was new as well as findings of a left bundle-branch block. The patient had a cardiac catheterization during her stay, showing normal coronary arteries. The ejection fraction was estimated at 40%. For this reason, the hydroelectric plant maintainer was consulted to see if she would benefit from a biventricular pacer placed given the left bundle-branch block and she underwent placement of this as well as an EP study. There was no evidence of any inducible arrhythmias and given this as well as an ejection fraction above 35%, there was no defibrillator placed and she underwent the procedure well and was able to be discharged home on 04/29/2019, in stable condition. Job ID: [id number]
== END 2019-04-29 16:20 | disposition home or self-care (01) | DRG 242 ==
LOC: ERS 15:43 → OBSVTOIN 19:25 → 2SW 19:25 → 2NO 04-26 17:23
PROVIDERS: ADMIT Emergency Medicine; ATTEND Emergency Medicine
PROC: 4A023N7 Measurement of Cardiac Sampling and Pressure, Left Heart, Percutaneous Approach (ICD-10-PCS; 2019-04-25)
PROC: B2111ZZ Fluoroscopy of Multiple Coronary Arteries using Low Osmolar Contrast (ICD-10-PCS; 2019-04-25)
PROC: B2151ZZ Fluoroscopy of Left Heart using Low Osmolar Contrast (ICD-10-PCS; 2019-04-25)
PROC: 0JH607Z Insertion of Cardiac Resynchronization Pacemaker Pulse Generator into Chest Subcutaneous Tissue and Fascia, Open Approach (ICD-10-PCS; principal; 2019-04-28)
PROC: 02H63JZ Insertion of Pacemaker Lead into Right Atrium, Percutaneous Approach (ICD-10-PCS; 2019-04-28)
PROC: 02HL3JZ Insertion of Pacemaker Lead into Left Ventricle, Percutaneous Approach (ICD-10-PCS; 2019-04-28)
PROC: 02HK3JZ Insertion of Pacemaker Lead into Right Ventricle, Percutaneous Approach (ICD-10-PCS; 2019-04-28)
PROC: 4A023FZ Measurement of Cardiac Rhythm, Percutaneous Approach (ICD-10-PCS; 2019-04-28)
PROC: 4A0234Z Measurement of Cardiac Electrical Activity, Percutaneous Approach (ICD-10-PCS; 2019-04-28)
DX: I44.0 Atrioventricular block, first degree (principal); I50.21 Acute systolic (congestive) heart failure; I44.7 Left bundle-branch block, unspecified; E11.9 Type 2 diabetes mellitus without complications; I11.0 Hypertensive heart disease with heart failure; E78.5 Hyperlipidemia, unspecified; H40.9 Unspecified glaucoma; Z98.890 Other specified postprocedural states; Z79.82 Long term (current) use of aspirin; Z79.84 Long term (current) use of oral hypoglycemic drugs
CPT/HCPCS: 33208; 33225; 36005; 36415; 36416; 70450; 71045; 75820; 76942; 80048; 80053; 81003; 81015; 82550; 83880; 84443; 84484; 85025; 87086; 93005; 93306; 93458; 93621; 93623; 93798; 93880; 96361; 96374; 99152; 99153; C1769; C1882; C1898; C1900; J0690; J1644; J2001; J2250; J2405; J3010; J3490; S0028

== ENCOUNTER 2021-11-20 13:37 | Outpatient (CLI) | payer MEDICARE, OTHER | END 2021-11-20 13:38 | disposition home or self-care (01) | LOC: ULT 13:37 | PROVIDERS: ATTEND Internal Medicine Cardiovascular Disease | DX: R60.0 Localized edema (principal) ==

== ENCOUNTER 2023-10-12 13:26 | Outpatient (CLI) | payer MEDICARE, OTHER | END 2023-10-12 13:27 | disposition home or self-care (01) | LOC: BICCT 13:26 | PROVIDERS: ATTEND Nurse Practitioner Family | DX: R42 Dizziness and giddiness (principal) | CPT/HCPCS: 70450 ==